=== PATIENT | male | born 1965 | race Caucasian/White ===

== ENCOUNTER 2022-05-20 23:20 | Emergency (ER) | payer OTHER ==
[~2022-05-20] VITALS: Ht 198.1 cm; Wt 88.0 kg
[2022-05-20 23:31] VITALS: BP 123/82
[2022-05-20 23:47] VITALS: BP 158/95
[2022-05-20 23:49] LABS: HEMOGLOBIN 14.9 g/dl (14.0-18.0); IMMATURE GRANULOCYTES 0.2 % (0.0-5.0); MEAN CELL VOLUME 88.5 fL CALC (80.0-100.0); MEAN CORPUSCULAR HGB CONC 33.9 g/dL CAL (32.0-36.0); NEUT# 4.28 thou/uL (1.82-7.42); RED BLOOD COUNT 4.97 mill/uL (4.70-6.10); RED CELL DISTRI WIDTH 13.8 % (11.5-15.5)
[2022-05-21] VITALS (7 sets, daily range): BP systolic 131–172; BP diastolic 76–93
[2022-05-21 00:01] LABS: ALBUMIN 4.8 g/dL (3.2-5.0); ALKALINE PHOSPHATASE 63 u/l (38-126); ANION GAP 17 (6-22 (CALC)); BILIRUBIN, TOTAL 0.3 mg/dL (0.0-1.4); BUN 24 mg/dL (9-20); BUN/CREATININE RATIO 19 (12-20 (CALC)); CARBON DIOXIDE 24 mmol/l (22-30); CHLORIDE 104 mmol/l (95-108); CREATININE 1.2 mg/dL (0.7-1.3); GFR FOR AFR.AMER. > 60 ML/MIN (>=60 (CALC)); GFR OTHER RACES > 60 ML/MIN (>=60 (CALC)); POTASSIUM 4.2 mmol/l (3.5-5.1); SGOT/AST 27 u/l (17-59); SODIUM 140 mmol/l (137-146); TOTAL PROTEIN 7.8 g/dL (6.3-8.2)
[2022-05-21] MEDS ORDERED: TAMSULOSIN0.4 MG PO (02:00)
[2022-05-21] MEDS ORDERED: LORTAB5 PO (02:00)
[2022-05-21 02:56] LABS: URINE BILIRUBIN - DIPSTICK NEGATIVE (NEGATIVE); URINE BLOOD DIPSTICK LARGE (NEGATIVE); URINE COLOR YELLOW; URINE GLUCOSE - DIPSTICK 100 mg/dL (NEGATIVE); URINE KETONE NEGATIVE (NEGATIVE); URINE LEUK ESTERASE NEGATIVE (NEGATIVE); URINE PROTEIN - DIPSTICK TRACE mg/dL (NEG-TRACE); URINE SPECIFIC GRAVITY 1.025; URINE UROBILINOGEN - DIPSTICK 0.2 E.U./dL (0.2)
[2022-05-21 03:00] LABS: URINE NITRITE - DIPSTICK NEGATIVE (Negative)
[2022-05-21 03:01] LABS: URINE RBC 50-100 RBC/hpf (0-5); URINE SQUAMOUS EPITHELIAL CELL FEW EPI/hpf (0-FEW); URINE WBC 0-2 WBC/hpf (0-5)
[2022-05-21 03:02] LABS: URINE BACTERIA FEW hpf
[2022-05-22] MEDS ORDERED: LORTAB 1010 MG PO (15:54)
[2022-05-22] MEDS ORDERED: TAMSULOSIN0.4 MG PO (15:54)
[2022-05-22] MEDS ORDERED: TORADOL PO (15:54)
== END 2022-05-21 02:58 | disposition home or self-care (01) | DRG 694 ==
LOC: ED 23:20
PROVIDERS: Family Medicine
DX: N13.2 Hydronephrosis with renal and ureteral calculous obstruction (principal)

== ENCOUNTER 2022-05-22 09:47 | Emergency (ER) | payer OTHER ==
[2022-05-22] VITALS (18 sets, daily range): BP systolic 139–164; BP diastolic 69–95
[~2022-05-22] VITALS: Ht 198.1 cm; Wt 84.0 kg
[~2022-05-22 09:47] MED LIST: LORTAB5 PO; TAMSULOSIN0.4 MG PO
[2022-05-22 10:42] LABS: URINE BLOOD DIPSTICK LARGE (NEGATIVE); URINE GLUCOSE - DIPSTICK 100 mg/dL (NEGATIVE); URINE KETONE TRACE mg/dL (NEGATIVE); URINE LEUK ESTERASE NEGATIVE (NEGATIVE); URINE PH 5.5 (4.5-8.0); URINE PROTEIN - DIPSTICK 30 mg/dL (NEG-TRACE); URINE SPECIFIC GRAVITY >=1.030; URINE UROBILINOGEN - DIPSTICK 0.2 E.U./dL (0.2)
[2022-05-22 10:44] LABS: HEMATOCRIT 42.2 % (39.0-50.0); HEMOGLOBIN 14.4 g/dl (14.0-18.0); IMMATURE GRANULOCYTES 0.2 % (0.0-5.0); MEAN CELL VOLUME 89.6 fL CALC (80.0-100.0); MEAN CORPUSCULAR HGB 30.6 pG CALC (26.0-32.0); MEAN CORPUSCULAR HGB CONC 34.1 g/dL CAL (32.0-36.0); NEUT# 7.22 thou/uL (1.82-7.42); RED BLOOD COUNT 4.71 mill/uL (4.70-6.10); RED CELL DISTRI WIDTH 13.8 % (11.5-15.5)
[2022-05-22 10:47] LABS: URINE BILIRUBIN - DIPSTICK SMALL (NEGATIVE); URINE NITRITE - DIPSTICK NEGATIVE (Negative)
[2022-05-22 10:48] LABS: URINE COLOR DK. YELLOW
[2022-05-22 10:52] LABS: ALBUMIN 4.5 g/dL (3.2-5.0); ALKALINE PHOSPHATASE 57 u/l (38-126); ANION GAP 15 (6-22 (CALC)); BILIRUBIN, TOTAL 0.7 mg/dL (0.0-1.4); BUN 19 mg/dL (9-20); BUN/CREATININE RATIO 14 (12-20 (CALC)); CARBON DIOXIDE 26 mmol/l (22-30); CHLORIDE 102 mmol/l (95-108); CREATININE 1.3 mg/dL (0.7-1.3); GFR FOR AFR.AMER. > 60 ML/MIN (>=60 (CALC)); GFR OTHER RACES 57 ML/MIN (>=60 (CALC)); POTASSIUM 3.8 mmol/l (3.5-5.1); SGOT/AST 39 u/l (17-59); SODIUM 139 mmol/l (137-146); TOTAL PROTEIN 7.8 g/dL (6.3-8.2)
[2022-05-22 10:59] LABS: URINE WBC 0-2 WBC/hpf (0-5)
[2022-05-22 11:04] LABS: MYOGLOBIN 54 ng/mL (0 - 121)
[2022-05-22] MEDS ORDERED: TAMSULOSIN0.4 MG PO (15:54)
[2022-05-22] MEDS ORDERED: TORADOL PO (15:54)
[2022-05-22] MEDS ORDERED: LORTAB 1010 MG PO (15:54)
== END 2022-05-22 16:10 | disposition home or self-care (01) | DRG 694 ==
LOC: ED 09:47
PROVIDERS: Emergency Medicine
DX: N13.2 Hydronephrosis with renal and ureteral calculous obstruction (principal); Z20.822 Contact with and (suspected) exposure to COVID-19
CPT/HCPCS: Q9967

== ENCOUNTER 2022-05-27 08:39 | Inpatient (IN) | payer OTHER ==
[2022-05-27] VITALS (16 sets, daily range): BP systolic 125–154; BP diastolic 68–83
[~2022-05-27] VITALS: Ht 198.1 cm; Wt 100.0 kg
[~2022-05-27 08:39] MED LIST changes: +LORTAB 1010 MG PO; +TORADOL PO
--- NOTE | 2022-05-27 09:00 | NUR ---
PATIENT TO ROOM VIA WHEELCHAIR.
[2022-05-27 09:43] LABS: IMMATURE GRANULOCYTES 0.1 % (0.0-5.0); MEAN CELL VOLUME 88.7 fL CALC (80.0-100.0); MEAN CORPUSCULAR HGB 30.2 pG CALC (26.0-32.0); MEAN CORPUSCULAR HGB CONC 34.1 g/dL CAL (32.0-36.0); NEUT# 5.98 thou/uL (1.82-7.42); RED BLOOD COUNT 3.97 mill/uL (4.70-6.10); RED CELL DISTRI WIDTH 13.2 % (11.5-15.5)
[2022-05-27 09:48] LABS: HEMATOCRIT 35.2 % (39.0-50.0)
[2022-05-27 09:54] LABS: BILIRUBIN, TOTAL 0.5 mg/dL (0.0-1.4); CREATININE 1.8 mg/dL (0.7-1.3); POTASSIUM 4.4 mmol/l (3.5-5.1); TOTAL PROTEIN 7.2 g/dL (6.3-8.2)
[2022-05-27 09:58] LABS: URINE BILIRUBIN - DIPSTICK NEGATIVE (NEGATIVE); URINE BLOOD DIPSTICK MODERATE (NEGATIVE); URINE COLOR YELLOW; URINE GLUCOSE - DIPSTICK NEGATIVE (NEGATIVE); URINE KETONE 15 mg/dL (NEGATIVE); URINE LEUK ESTERASE NEGATIVE (NEGATIVE); URINE PROTEIN - DIPSTICK NEGATIVE (NEG-TRACE)
[2022-05-27 10:00] LABS: URINE NITRITE - DIPSTICK NEGATIVE (Negative)
[2022-05-27 10:07] LABS: URINE WBC 0-2 WBC/hpf (0-5)
--- NOTE | 2022-05-27 10:17 | NUR ---
Reassessment of patient completed. No distress noted. MEDS GIVEN AND FLUIDS ARE RUNNING
--- NOTE | 2022-05-27 11:20 | NUR ---
ALL FLUIDS ARE COMPLETED. CHECKED ON PT. NAD. RESTING WITH EYES CLOSED
--- NOTE | 2022-05-27 12:40 | NUR ---
REPORT GIVEN TO NURSE CHRISTINA
--- NOTE | 2022-05-27 13:27 | NUR ---
PT RESTING IN LOW FOWLERS POSITION. A/OX3 ASSESSMENT AND VS COMPLETED. PT HEART RHYTHM NORMAL RESPIRATIONS UNLABORED. BOWELSOUNDS ACTIVE. IV SITE TO RAC 20G. PT DENIES ANY WOUNDS PT ON ROOM AIR. IV FLUIDS RUNNING. PT MEDICATIONS FROM HOME NO LONGER AT BEDSIDE TO BE GIVEN TO PHARMACY. PAIN MEDS COUNTED WITH OTHER DAY NURSE FOR VERIFICATION. PROVIDER SEEN PT AT BEDSIDE. PT PROVIDED SOFT PUDDING FOR PT MED TO SWALLOW. PT DENIES ADDITIONAL NEEDS ALL SAFETY PRECAUTIONS IN PLACE.CALL LIGHT IN REACH.
--- NOTE | 2022-05-27 16:27 | NUR ---
PT C/O OF NAUSEA. NAUSEA MEDICATION PROVIDED PER EMAR . PT PAIN MED PROVIDED PER EMAR.
[2022-05-28 03:58] VITALS: BP 117/64
[2022-05-28 06:30] VITALS: BP 130/73
--- NOTE | 2022-05-28 08:00 | NUR ---
PT RESTING IN LOW FOWLERS POSITION PT A/OX3 PT DENIES PAIN AT THE TIME. PT ABLE TO TOLERATE MEDICATIONS WELL. PT TYLENOL FOR TEMP OF 99.0 TO REASSESS . PT ABLE TO AMBULATE TO SHOWER. ALL SAFETY PRECAUTIONS IN PLACE CALL LIGHT IN REACH.
[2022-05-28 09:48] LABS: CREATININE 1.5 mg/dL (0.7-1.3); POTASSIUM 4.2 mmol/l (3.5-5.1)
[2022-05-28] MEDS ORDERED: ONDANSETRON4 MG PO (10:11)
[2022-05-28] MEDS ORDERED: LORTAB 1010 MG PO (10:11)
--- NOTE | 2022-05-28 12:25 | NUR ---
Discharge instructions given. Patient verbalizes understanding of same. Discharged in stable condition via Wheelchair to Home with staff. All belongings sent with pt. IV REMOVED HOME MEDICATIONS SENT WITH PATIENT . NO TELE.
== END 2022-05-28 12:27 | disposition home or self-care (01) | DRG 694 ==
LOC: ED 08:39 → ED-I 09:33 → ED 11:57 → MS2 11:58
PROVIDERS: Nurse Practitioner; ADMIT Internal Medicine; ATTEND Internal Medicine
DX: N13.2 Hydronephrosis with renal and ureteral calculous obstruction (principal); N17.9 Acute kidney failure, unspecified
CPT/HCPCS: J1650

== ENCOUNTER 2022-06-08 01:52 | Emergency (ER) | payer OTHER ==
[~2022-06-08] VITALS: Ht 198.1 cm; Wt 86.0 kg
[~2022-06-08 01:52] MED LIST changes: +ONDANSETRON4 MG PO
[2022-06-08] MEDS ORDERED: TORADOL PO (02:14)
[2022-06-08 02:17] LABS: HEMATOCRIT 38.3 % (39.0-50.0); HEMOGLOBIN 12.6 g/dl (14.0-18.0); IMMATURE GRANULOCYTES 0.2 % (0.0-5.0); MEAN CELL VOLUME 91.6 fL CALC (80.0-100.0); MEAN CORPUSCULAR HGB 30.1 pG CALC (26.0-32.0); MEAN CORPUSCULAR HGB CONC 32.9 g/dL CAL (32.0-36.0); NEUT# 2.86 thou/uL (1.82-7.42); RED BLOOD COUNT 4.18 mill/uL (4.70-6.10); RED CELL DISTRI WIDTH 13.5 % (11.5-15.5)
[2022-06-08 02:18] LABS: URINE BILIRUBIN - DIPSTICK NEGATIVE (NEGATIVE); URINE BLOOD DIPSTICK LARGE (NEGATIVE); URINE COLOR YELLOW; URINE GLUCOSE - DIPSTICK NEGATIVE (NEGATIVE); URINE KETONE NEGATIVE (NEGATIVE); URINE LEUK ESTERASE NEGATIVE (NEGATIVE); URINE PH 5.5 (4.5-8.0); URINE PROTEIN - DIPSTICK NEGATIVE (NEG-TRACE); URINE SPECIFIC GRAVITY >=1.030; URINE UROBILINOGEN - DIPSTICK 0.2 E.U./dL (0.2)
[2022-06-08 02:21] LABS: URINE NITRITE - DIPSTICK NEGATIVE (Negative)
[2022-06-08 02:26] LABS: URINE BACTERIA FEW hpf; URINE CRYSTALS FEW lpf; URINE RBC 50-100 RBC/hpf (0-5); URINE SQUAMOUS EPITHELIAL CELL FEW EPI/hpf (0-FEW)
[2022-06-08 02:29] LABS: ALBUMIN 4.2 g/dL (3.2-5.0); ALKALINE PHOSPHATASE 47 u/l (38-126); ANION GAP 14 (6-22 (CALC)); BUN 32 mg/dL (9-20); BUN/CREATININE RATIO 24 (12-20 (CALC)); CARBON DIOXIDE 23 mmol/l (22-30); CHLORIDE 106 mmol/l (95-108); CREATININE 1.3 mg/dL (0.7-1.3); GFR FOR AFR.AMER. > 60 ML/MIN (>=60 (CALC)); GFR OTHER RACES 57 ML/MIN (>=60 (CALC)); POTASSIUM 4.3 mmol/l (3.5-5.1); SGOT/AST 29 u/l (17-59); SODIUM 138 mmol/l (137-146); TOTAL PROTEIN 7.1 g/dL (6.3-8.2)
[2022-06-08 02:30] LABS: BILIRUBIN, TOTAL 0.2 mg/dL (0.0-1.4)
[2022-06-08] MEDS ORDERED: TAMSULOSIN0.4 MG PO (03:24)
[2022-06-08 03:30] VITALS: BP 153/83
== END 2022-06-08 03:45 | disposition home or self-care (01) | DRG 694 ==
LOC: ED 01:52
PROVIDERS: Family Medicine
DX: N23 Unspecified renal colic (principal); N20.1 Calculus of ureter; Z87.442 Personal history of urinary calculi